=== PATIENT | female | born 1970 | race American Indian/Alaskan Native ===

== ENCOUNTER 2016-05-09 14:22 | Outpatient (CLI) | payer OTHER ==
--- NOTE | 2016-05-10 13:29 | Mammography Report ---
BILATERAL DIGITAL SCREENING MAMMOGRAM with CAD: 05/09/16 CLINICAL: Routine screening. COMPARISON:An 12/21/15 left mammogram and no right mammogram. However, our records indicate that a prior mammogram was done at [facility]. FINDINGS: The breasts are heterogeneously dense, which may obscure small masses. A right asymmetry on the CC view requires comparison with a prior mammogram for additional imaging.No architectural distortion or suspicious calcifications.A left asymmetry on the MLO view is stable and correlates with a previously documented cyst. IMPRESSION: Right asymmetry requiring further evaluation. BI-RADS CATEGORY: 0 -- Additional Evaluation Required RECOMMENDATION: Comparison with a previous right mammogram. We will attempt to obtain a prior mammogram from [facility]. If we do not obtain a prior mammogram for comparison within 30 days, a revised report will be issued recommending a recall. Please be advised that the patient should not schedule an appointment for return until adequate time (at least 2 weeks) has passed for us to obtain the prior mammogram. ACR BI-RADS MAMMOGRAPHIC CODES: 0 = Needs additional imaging evaluation; 1 = Negative; 2 = Benign; 3 = Probably benign; 4 = Suspicious; 5 = Malignant; 6 = Known biopsy-proven malignancy COMMENT: 1. Dense breast tissue, i.e., adenosis, fibrocystic changes, etc., may obscure an underlying neoplasm. 2. Approximately 10% of cancers are not detected with mammography. 3. A negative mammography report should not delay biopsy if a clinically suspicious mass is present. COMMENT: Patient follow-up letters are generated via our [employer] application.
== END 2016-05-09 14:23 | disposition home or self-care (01) ==
LOC: SPVWC 14:22
PROVIDERS: ATTEND Surgery
DX: Z12.31 Encounter for screening mammogram for malignant neoplasm of breast (principal)
CPT/HCPCS: 77067; G0202

== ENCOUNTER 2016-12-19 09:21 | Outpatient (CLI) | payer OTHER ==
--- NOTE | 2016-12-19 11:23 | Mammography Report ---
RIGHT DIGITAL DIAGNOSTIC MAMMOGRAM with CAD and RIGHT BREAST ULTRASOUND: 12/19/16 09:21:00 CLINICAL: Follow-up asymmetry. COMPARISON:05/09/16 FINDINGS: The breast is heterogeneously dense, which may obscure small masses. The previously described lower inner low density circumscribed asymmetry is stable on the MLO view and what appears to be a corresponding asymmetry on the CC view is slightly smaller. There are several smaller additional circumscribed densities in the inner right breast. No architectural distortion or suspicious calcifications. Ultrasound of the right breast (including all four quadrants and the retroareolar area) was performed and demonstrated a lymph node versus cystic cluster at 2 o'clock 5 cm from the nipple measuring on a 4 x 7 mm. A similar lymph node versus cystic cluster at 11 o'clock 4 cm from the nipple measures 7 x 2 x 7 mm. No other cyst or mass. IMPRESSION: Probably benign findings which include lymph nodes versus cystic cluster is at 2 o'clock and 11 o'clock and additional low density circumscribed mammographic densities with no ultrasound correlates. BI-RADS CATEGORY: 3 - - Probably Benign RECOMMENDATION: Six month followup right mammogram and right breast ultrasound. ACR BI-RADS MAMMOGRAPHIC CODES: 0 = Needs additional imaging evaluation; 1 = Negative; 2 = Benign; 3 = Probably benign; 4 = Suspicious; 5 = Malignant; 6 = Known biopsy-proven malignancy COMMENT: 1. Dense breast tissue, i.e., adenosis, fibrocystic changes, etc., may obscure an underlying neoplasm. 2. Approximately 10% of cancers are not detected with mammography. 3. A negative mammography report should not delay biopsy if a clinically suspicious mass is present. COMMENT: Patient follow-up letters are generated by our [employer] application.
== END 2016-12-19 09:22 | disposition home or self-care (01) ==
LOC: SPVWC 09:21
PROVIDERS: ATTEND Surgery
DX: R92.8 Other abnormal and inconclusive findings on diagnostic imaging of breast (principal)
CPT/HCPCS: 76641; G0206

== ENCOUNTER 2017-07-03 10:47 | Outpatient (CLI) | payer OTHER ==
--- NOTE | 2017-07-04 10:52 | Mammography Report ---
BILATERAL DIGITAL SCREENING MAMMOGRAM with CAD : 07/03/17 10:47:00 CLINICAL: This was performed as a screening that it is actually a followup of probably benign findings in the right breast. COMPARISON:12/19/16 FINDINGS: The breasts are heterogeneously dense, which may obscure small masses.The fibroglandular pattern is stable with stable right asymmetries. No mass, architectural distortion or suspicious calcifications. IMPRESSION: No mammographic evidence of malignancy. BI-RADS CATEGORY: 2 -- Benign RECOMMENDATION: Routine mammographic screening in one year. COMMENT: Patient follow-up letters are generated by our [employer] application.
== END 2017-07-03 10:48 | disposition home or self-care (01) ==
LOC: SPVWC 10:47
PROVIDERS: ATTEND Surgery
DX: Z12.31 Encounter for screening mammogram for malignant neoplasm of breast (principal)
CPT/HCPCS: 77067